=== PATIENT | female | born 1935 | race Caucasian/White ===

== ENCOUNTER 2019-06-12 18:33 | Inpatient (IN) ==
[2019-06-12 19:36] LABS: HEMATOCRIT 46.7 % (37.0-47.0); HEMOGLOBIN 15.8 g/dL (12.0-16.0); IMM GRAN# 0.05 X1000 (0.0-0.04); IMM GRAN% 0.6 % (0.0-0.5); LYMPH# 0.07 X1000 (1.2-3.4); LYMPH% 0.9 % (20.5-51.1); MCH 29.4 PG (27-31); MCHC 33.8 g/dL (33-37); MONO# 0.32 X1000 (0.11-0.59); MONO% 3.9 % (1.7-9.3); MPV 11.1 FL (7.4-10.4); NEUT% 94.6 % (42.2-75.2); PLT 108 X1000 (130-400); RBC 5.37 XMIL (4.2-5.4); RDW 14.9 % (11.5-14.5); WBC 8.14 X1000 (4.8-10.8)
--- NOTE | 2019-06-12 19:37 | PROVIDER DOCUMENTATION ---
This chart was entered by Marika Barbour Scribe, acting as scribe for Reina Reed MD. HPI-General Adult <Mayo SmithApollo - Last Filed: 06/12/19 20:34> - General Source: patient - History of Present Illness -Gen Adult Nature of Presenting Problems: 84 y/o female presents to ED with weakness onset 3 days ago. Pt reports she "just hasn't felt good." Pt states she thinks she has a UTI. Pt reports she saw her PCP yesterday for same, but has not gotten her results back yet. Last UTI was 2 weeks ago and she was treated with macrobid. Pt is alert and oriented. Location of Pain/Injury: reports: none Pain Radiation: reports: no radiation Quality of Pain: reports: none Severity: reports: mild Onset/Duration: reports: 3 days ago Timing: reports: still present Context/Activities at Onset: reports: none Modifying Factors: improves with: nothing Associated Symptoms: reports: weakness Similar Symptoms Previously?: Yes Recently seen or treated by another doctor?: Yes <Reina Reed - Last Filed: 06/12/19 21:27> - General Chief Complaint: UTI Symptoms Stated Complaint: ams/UTI Time Seen by Provider: 06/12/19 19:00 Allergies/Adverse Reactions: Patient Allergies Allergy/AdvReac Type Severity Reaction Status Date / Time iodine AdvReac HIVES Verified 06/12/19 18:59 Review of Systems - Adult - REVIEW OF SYSTEMS - ADULT Constitutional: denies: chills, fever Eyes: reports: no symptoms reported Ears, Nose, Mouth & Throat: reports: no symptoms reported Cardiovascular: denies: chest pain, palpitations Respiratory: denies: cough, shortness of breath Gastrointestinal: denies: abdominal pain, diarrhea, nausea, vomiting Genitourinary: reports: no symptoms reported Musculoskeletal: denies: back pain, joint pain Integumentary: reports: no symptoms reported Neurological: reports: other (weakness). denies: dizziness/vertigo, seizure Psychiatric: reports: no symptoms reported Endocrine: reports: no symptoms reported Hematologic/Lymphatic: reports: no symptoms reported Allergic/Immunologic: reports: no symptoms reported All Other Systems: Reviewed and Negative <Reina Reed - Last Filed: 06/12/19 21:27> Past History - Adult - PAST MEDICAL HISTORY-ADULT Review of Records: reports: Old Records Reviewed, Nursing Assessment Review, Medications Reviewed Major Childhood Illnesses: reports: denies history Cardiovascular: reports: arrhythmia - PRIOR SURGERIES/PROCEDURES Surgical/Procedure History: reports: breast (lumpectomy) - IMMUNIZATION STATUS Childhood Immunizations: See Nurse Assessment Flu Vaccine: See Nurse Assessment - FAMILY HISTORY Family History: reviewed, not pertinent - SOCIAL HISTORY Smoking: non-smoker Substance Use: none/never Alcohol Use Frequency: never Living Situation: family <BriannaReina Nara - Last Filed: 06/12/19 21:27> Physical Exam-General - PHYSICAL EXAM-ADULT Initial Vital Signs Reviewed: Yes (HTN on monitor) - CONSTITUTIONAL General Appearance: appears well, alert, no apparent distress - EYES Eyes: PERRL/EOMI, pink conjunctivae - HEAD, EARS, NOSE, MOUTH & THROAT HENMT: normocephalic/atraumatic, moist mucous membranes, normal ENT inspection - NECK Neck: non-tender, full range of motion - RESPIRATORY Respiratory: chest non-tender, lungs clear, normal breath sounds - CARDIOVASCULAR Cardiovascular: normal peripheral pulses, regular rate, rhythm - GASTROINTESTINAL (ABDOMEN) Abdominal Exam: normal bowel sounds, non tender, soft - MUSCULOSKELETAL Back Exam: normal inspection, no CVA tenderness, no vertebral tenderness Extremity: normal range of motion, non-tender - SKIN Integumentary: normal color, warm/dry - NEUROLOGIC Neurologic: grossly normal - PSYCHIATRIC Psych/Mental Status: normal mood/affect, normal thought content, normal thought process, oriented x 3 <Reina Reed - Last Filed: 06/12/19 21:27> Progress - PLAN OF CARE/RESULTS Progress/Plan/Lab Results: Vital Signs - 8 hr 06/12/19 18:57 Temperature 99.3 F Pulse Rate 103 H Respiratory Rate 20 Blood Pressure 164/96 O2 Sat by Pulse Oximetry 96 Laboratory Results - last 24 hr 06/12/19 06/12/19 06/12/19 19:12 19:12 19:43 WBC 8.14 RBC 5.37 Hgb 15.8 Hct 46.7 MCV 87.0 MCH 29.4 MCHC 33.8 RDW Std Deviation 14.9 H Plt Count 108 L MPV 11.1 H Immature Gran % (Auto) 0.6 H Neut % (Auto) 94.6 H Lymph % (Auto) 0.9 L Isabella % (Auto) 3.9 Eos % (Auto) 0.0 Baso % (Auto) 0.0 Immature Gran # (Auto) 0.05 H Neut # (Auto) 7.70 H Lymph # (Auto) 0.07 L Isabella # (Auto) 0.32 Eos # (Auto) 0.00 Baso # (Auto) 0.00 Sodium 134 L Potassium 4.3 Chloride 100 Carbon Dioxide 21 L Anion Gap 13 BUN 46 H Creatinine 1.6 H Estimated GFR/1.73 m2 31 BUN/Creatinine Ratio 29 Glucose 228 H Calculated Osmolality 287 Calcium 8.7 L Total Bilirubin 0.30 AST 39 H ALT 21 Alkaline Phosphatase 148 H Total Protein 7.1 Albumin 3.5 Globulin 4.0 Albumin/Globulin Ratio 1.0 Urine Source CATH Urine Color YELLOW Urine Clarity VERY CLOUDY A Urine pH 5.0 Ur Specific [place] 1.010 Urine Protein 2+(100 mg/dL) A Urine Ketones TRACE Urine Blood 3+ A Urine Nitrite NEGATIVE Urine Bilirubin NEGATIVE Urine Urobilinogen NORMAL Urine Microscopic RBC 10-20 A Urine WBC 2+ A Urine Microscopic WBC TNTC A Ur Epithelial Cells >10 A Urine Crystals NONE SEEN Urine Bacteria 2+ Urine Casts NONE SEEN Urine Yeast NONE SEEN Urine Glucose 1+(100 mg/dL) A Orders Category Date Time Status CHEST-PORTABLE [RAD] Stat Exams 06/12/19 19:09 Taken CBC WITH ELECTRONIC DIFF [HEME] Stat Lab 06/12/19 19:12 Completed COMPREHENSIVE METABOLIC PANEL [CHEM] Stat Lab 06/12/19 19:12 Completed UA NIMS W/REFLEX CULT PL [URINALYSIS] Stat Lab 06/12/19 19:43 Completed URINE CULTURE [RM] Routine Lab 06/12/19 20:10 Ordered Result Diagrams: 06/12/19 19:12 06/12/19 19:12 <Mayo Smith - Last Filed: 06/12/19 20:34> - PLAN OF CARE/RESULTS Progress/Plan/Lab Results: Vital Signs - 8 hr 06/12/19 18:57 Temperature 99.3 F Pulse Rate 103 H Respiratory Rate 20 Blood Pressure 164/96 O2 Sat by Pulse Oximetry 96 Orders Category Date Time Status CHEST-PORTABLE [RAD] Stat Exams 06/12/19 19:09 Ordered CBC WITH ELECTRONIC DIFF [HEME] Stat Lab 06/12/19 19:09 Uncollected COMPREHENSIVE METABOLIC PANEL [CHEM] Stat Lab 06/12/19 19:09 Uncollected UA NIMS W/REFLEX CULT PL [URINALYSIS] Stat Lab 06/12/19 19:09 Uncollected Result Diagrams: 06/12/19 19:12 06/12/19 19:12 - XRAY 1 XRAY Study: Chest Impression: See EMR Report ([facility] - [address] , [address], [place] [address] [facility] - [address] , [place] [address] Department of Imaging Patient: RAKESH LOGANDM Date: 06/12/19#: [id number] : 1935DM Status: REG ERAcct#: [id number] Age/Sex: 84/FRoom/Bed: Loc: P.ED Ordering Physician: Reina Reed MD Family Physician: None,PCP Reason for Procedure: WESpencer GUIDRY ___ Signed CHEST-PORTABLE - 06/12/2019 INDICATION: WEAKNESS COMPARISON: None FINDINGS: There is some hazy atelectasis in the lung bases bilaterally. No infiltrates or edema. No pneumothorax or pleural effusion. Heart size is normal. IMPRESSION: Hazy nonspecific bibasilar atelectasis. Electronically signed by Thomas Albrecht 06/12/2019 9:10 PM 06/12/192109 Interpreting Physician: Thomas Albrecht MD Dictated Date/Time: 06/12/192109 cc: Reina Reed MD; None,PCP) - CONSULTS/PCP/HOSPITALIST Notification #1 *Consult/PCP/Hospitalist*: Dr. Clark Time Discussed: 20:34 Reason/Comments: UTI, weakness, dehydration, renal insufficiency Consult Disposition: Admit - CHANGE OF SHIFT REPORT (ED Provider) 1 Report Given and Care Transferred to:: Dr. Smith Time of Transfer: 20:00 Items Pending: Labs, XRAY Results <Reina Reed - Last Filed: 06/12/19 21:27> Departure - Departure Certified Medical Emergency: Emergent - Critical Care Note This patient required my direct & personal management of CC.: No <Mayo Smith - Last Filed: 06/12/19 20:34> - Departure Date of Disposition Decision: 06/12/19 Time of Disposition Decision: 20:34 Certified Medical Emergency: Emergent - Critical Care Note This patient required my direct & personal management of CC.: No <Reina Reed - Last Filed: 06/12/19 21:27> - Departure DIAGNOSIS: Weakness, Dehydration, Renal insufficiency UTI (urinary tract infection) Qualifiers: Urinary tract infection type: site unspecified Hematuria presence: with hematuria Qualified Code(s): N39.0 - Urinary tract infection, site not specified Disposition: ADMITTED INPATIENT 09 Condition: Fair Referrals and Follow-Ups: None,PCP [Primary Care Provider] - Attestation - Physician/ NERI Attestation Patient care was provided by Advanced Practice Provider:: No The physician spent face to face time with patient:: Yes Advanced Practice Provider documentation review:: Supervising physician onsite and consulted in the evaluation and care of this patient. The physician did have a face to face encounter with the patient. <Mayo Smith - Last Filed: 06/12/19 20:34> - Physician/ NERI Attestation Patient care was provided by Advanced Practice Provider:: No The physician spent face to face time with patient:: Yes Advanced Practice Provider documentation review:: Supervising physician onsite and consulted in the evaluation and care of this patient. The physician did have a face to face encounter with the patient. <Reina Reed - Last Filed: 06/12/19 21:27> This chart was documented by the indicated scribe, (Marika Barbour Scribe) and accurately reflects the services I performed and decisions made by , Reina Reed MD, as attested by the provider's signature.
[2019-06-12 19:49] LABS: ALBUMIN 3.5 g/dL (3.5-5.0); CALCIUM 8.7 mg/dL (8.8-10.2); CREATININE 1.6 mg/dL (0.5-0.9); POTASSIUM 4.3 mmol/L (3.5-5.1); TOTAL BILIRUBIN 0.3 mg/dL (0.20-1.00); TOTAL PROTEIN 7.1 g/dL (6.3-8.3)
[2019-06-12 19:59] LABS: BILIRUBIN URINE NEGATIVE (NEGATIVE); BLOOD URINE 3+ (NEGATIVE); CLARITY VERY CLOUDY (CLEAR); COLOR YELLOW; KETONE URINE TRACE mg/dL (NEGATIVE); LEUKOCYTES URINE 2+ (NEGATIVE); NITRITE URINE NEGATIVE (NEGATIVE); PROTEIN URINE 2+(100 mg/dL) mg/dL (NEGATIVE); UROBILINOGEN URINE NORMAL
[2019-06-12 20:09] LABS: URINE WBC TNTC /HPF (<10)
[2019-06-12 20:10] LABS: URINE BACTERIA 2+ /HFP; URINE CAST NONE SEEN /LPF; URINE CRYSTAL NONE SEEN /HPF; URINE EPITHELIAL CELLS >10 /HPF (<10); URINE SOURCE CATH; URINE YEAST NONE SEEN /HPF
--- NOTE | 2019-06-12 21:13 | Diag Imaging Result Doc PS360 ---
CHEST-PORTABLE - 06/12/2019 INDICATION: WEAKNESS COMPARISON: None FINDINGS: There is some hazy atelectasis in the lung bases bilaterally. No infiltrates or edema. No pneumothorax or pleural effusion. Heart size is normal. IMPRESSION: Hazy nonspecific bibasilar atelectasis. Electronically signed by Thomas Albrecht 06/12/2019 9:10 PM
[2019-06-12] MEDS ORDERED: ZOFRAN IV PRN (22:25)
[2019-06-12] MEDS ORDERED: NS 1,000 ML IV ONE (22:25)
[2019-06-12] MEDS ORDERED: ROCEPHIN 1 GM in NS 50 ML IV SCH (22:25)
[2019-06-13] MEDS ORDERED: TYLENOL PO PRN (06:38)
[2019-06-13] MEDS ORDERED: ZOFRAN IV PRN (06:38)
[2019-06-13 07:52] LABS: HEMOGLOBIN A1C 5.5 % (4.8-6.0)
[2019-06-13 08:08] LABS: HEMATOCRIT 34.8 % (37.0-47.0); MCH 28.4 PG (27-31); MCHC 31.6 g/dL (33-37); MCV 89.7 FL (81-99); MPV 10.4 FL (7.4-10.4); RBC 3.88 XMIL (4.2-5.4); RDW 14.8 % (11.5-14.5); WBC 13.65 X1000 (4.8-10.8)
[2019-06-13 08:09] LABS: ALBUMIN 3.3 g/dL (3.5-5.0); CALCIUM 8.7 mg/dL (8.8-10.2); CREATININE 1.5 mg/dL (0.5-0.9); MAGNESIUM 2.2 mg/dL (1.5-2.7); POTASSIUM 4.1 mmol/L (3.5-5.1); TOTAL BILIRUBIN 0.2 mg/dL (0.20-1.00); TOTAL PROTEIN 6.4 g/dL (6.3-8.3)
--- NOTE | 2019-06-13 12:04 | HISTORY AND PHYSICAL ---
CHIEF COMPLAINT: "I just haven't felt good. I think I have a UTI." HISTORY OF PRESENT ILLNESS: This is an 84-year-old female who presents to the emergency room, stating that she has had generalized weakness and just not felt good over the past 3 days. She thinks she has a UTI. She was treated 2 weeks ago with Macrobid for UTI. She stated that symptoms got a little better during this time, but since stopping the medication over the last week, symptoms have recurred. She was evaluated on the by her primary care physician. She stated they took a urine culture and told her they would call her and give antibiotics if warranted per the culture. She began to feel worse, prompting her presentation to the emergency room. PAST MEDICAL HISTORY: 1. Recent urinary tract infection. 2. Palpitations. PAST SURGICAL HISTORY: Lumpectomy. SOCIAL HISTORY: She denies alcohol, tobacco, or illicit drug use. ALLERGIES: Iodine which causes hives. HOME MEDICATIONS: None. REVIEW OF SYSTEMS: Review of systems discussed with patient, with pertinent positives stated in the HPI. She denied any syncope or dizziness, any chest pain or palpitations, any night sweats, any fevers or chills, recent weight loss or weight gain, any nausea, vomiting, diarrhea, constipation, shortness of breath, PND, orthopnea, any hematuria. PHYSICAL EXAMINATION: GENERAL: This is an 84-year-old female, who is sitting up in the bed in no distress. VITAL SIGNS: Blood pressure 134/57, heart rate of 62, respirations 18, temperature 97.7 degrees orally, O2 saturation 100%. HEENT: Head is normocephalic, atraumatic. Mucous membranes are moist. NECK: Supple with trachea midline. CARDIOVASCULAR: Regular rate and rhythm. S1 and S2 appreciated. EXTREMITIES: She has no lower extremity edema. Calves are nontender bilateral with peripheral pulses palpable x4 extremities. PULMONARY: Breath sounds are clear with no increased work of breathing noted. Chest rises and falls symmetric with respiration. GASTROINTESTINAL: Abdomen is soft, nontender, nondistended with bowel sounds in all 4 quadrants. GENITOURINARY: She denies any CVA or suprapubic tenderness. NEUROLOGIC: She is alert and oriented x3. SKIN: Warm and dry. DIAGNOSTIC STUDIES: WBC 13.6, hemoglobin 11, hematocrit 34.8, platelets of 173,000. Sodium 140, potassium 4.1, BUN 43, creatinine 1.5, glucose 113. Urinalysis revealed too numerous to count white blood cells, greater than 10 epithelial cells, 10-20 microscopic red blood cells, nitrite negative. Chest x-ray revealed hazy nonspecific bibasilar atelectasis. ASSESSMENT AND PLAN: 1. Bibasilar atelectasis. 2. Urinary tract infection, currently growing gram-negative rods on culture. 3. Leukocytosis. 4. Renal insufficiency. We are unsure if this is chronic or not as we have no prior labs and the patient is unsure. 5. Deep vein thrombosis prophylaxis. 6. Gastrointestinal prophylaxis. PLAN: The patient has been admitted to the medical-surgical floor. She was placed on telemetry which we will continue. We will place her on a regular diet with Ensure supplements. We will continue IV hydration with Rocephin for antibiotic coverage, Tylenol as needed. As she had atelectasis on her chest x-ray, we will add incentive spirometer. Of note, in reviewing the patient's labs, she did have a platelet count of 108,000 on the so we will use SCDs. Although the platelets have come up to 173, we will hold Lovenox for now and use SCDs and have the patient up to the chair. For GI prophylaxis, we will use Prilosec. Further treatments pending hospital course. Dictated by CANDIE Richmond for Franklyn Clark MD cc: CANDIE Richmond MD
--- NOTE | 2019-06-13 20:14 | HISTORY AND PHYSICAL ---
ADDENDUM: Patient seen and examined by myself. Full note dictated and discussed with nurse practitioner. Patient presented to the hospital with low grade fevers. She really just has not felt well. She has had some urinary symptoms. She did have a UTI 2 weeks ago, was treated with Macrobid. It appears as though she still has a urinary infection. We are going to put her in the hospital, antibiotics, IV fluids, follow her blood pressures and her heart rates. Her blood sugars are elevated. We will place her on sliding scale. Further orders as needed. cc: Franklyn Clark MD
[2019-06-13] MEDS ORDERED: ROCEPHIN 1 GM in NS 50 ML IV SCH (21:00)
[2019-06-14] MEDS: PRILOSEC PO SCH (06:09)
[2019-06-14 06:44] LABS: CALCIUM 8.4 mg/dL (8.8-10.2); CREATININE 1.2 mg/dL (0.5-0.9); POTASSIUM 3.7 mmol/L (3.5-5.1)
[2019-06-14 07:32] LABS: HEMATOCRIT 35.6 % (37.0-47.0); HEMOGLOBIN 11.3 g/dL (12.0-16.0); MCV 89.2 FL (81-99); RBC 3.99 XMIL (4.2-5.4); WBC 9.49 X1000 (4.8-10.8)
[2019-06-14 07:33] LABS: BASO# 0.03 X1000 (0.0-0.2); BASO% 0.3 % (0.0-0.8); EOS# 0.06 X1000 (0.0-0.7); EOS% 0.6 % (0.0-10.0); IMM GRAN# 0.04 X1000 (0.0-0.04); IMM GRAN% 0.4 % (0.0-0.5); LYMPH# 0.66 X1000 (1.2-3.4); MCH 28.3 PG (27-31); MCHC 31.7 g/dL (33-37); MONO# 2.42 X1000 (0.11-0.59); MONO% 25.5 % (1.7-9.3); MPV 11.2 FL (7.4-10.4); NEUT# 6.28 X1000 (1.4-6.5); NEUT% 66.2 % (42.2-75.2); PLT 199 X1000 (130-400); RDW 14.6 % (11.5-14.5)
[2019-06-14 10:36] LABS: BANDS 1 % (0-1); LYMPHS 8 % (21-51); MONO 17 % (1-9); SEGS 74 % (42-75)
[2019-06-14] MEDS: LEVAQUIN PO SCH (10:59)
[2019-06-14] MEDS: LACTULOSE PO SCH ×2 (10:59→21:51)
--- NOTE | 2019-06-14 19:37 | PROGRESS NOTE ---
DATE: 06/14/2019 SUBJECTIVE: The patient notes that she is feeling better from an infectious standpoint, but she is still weak and fatigued, having difficulty getting out of bed. Her family notes that the weakness had been going on for several days prior to coming to the hospital as well. OBJECTIVE: Temperature 98.3 degrees, pulse 75, respiratory 18, BP 145/90.General: Patient is a pleasant elderly female who is in no respiratory distress. HEENT: Normocephalic. Neck: Supple. Cardiovascular: Regular rate. No murmurs. Chest: Clear, nonlabored. Abdomen: Soft, nondistended. Extremities: Moves all extremities. Skin: Warm and dry. No rashes. ASSESSMENT: 1. Generalized weakness. 2. Fatigue. 3. Escherichia coli urinary tract infection, pansensitive. We will switch her to Levaquin. 4. Leukocytosis, improved. 5. Renal insufficiency, resolved. 6. Advanced age. PLAN: We will continue patient in the hospital, consult Physical Therapy. Certainly may require rehab if she is unable to get stronger on her own. We will follow. Switch to Levaquin. Further orders as needed cc: Franklyn Clark MD MTDD
[2019-06-15] MEDS: PRILOSEC PO SCH (06:24)
[2019-06-15 06:36] LABS: BASO# 0.03 X1000 (0.0-0.2); BASO% 0.4 % (0.0-0.8); EOS# 0.06 X1000 (0.0-0.7); EOS% 0.8 % (0.0-10.0); HEMATOCRIT 35.8 % (37.0-47.0); HEMOGLOBIN 11.5 g/dL (12.0-16.0); IMM GRAN# 0.06 X1000 (0.0-0.04); IMM GRAN% 0.8 % (0.0-0.5); LYMPH# 0.79 X1000 (1.2-3.4); LYMPH% 10.1 % (20.5-51.1); MCH 28.7 PG (27-31); MCHC 32.1 g/dL (33-37); MCV 89.3 FL (81-99); MONO# 1.84 X1000 (0.11-0.59); MONO% 23.4 % (1.7-9.3); MPV 10.4 FL (7.4-10.4); NEUT# 5.07 X1000 (1.4-6.5); NEUT% 64.5 % (42.2-75.2); PLT 232 X1000 (130-400); RBC 4.01 XMIL (4.2-5.4); RDW 14.5 % (11.5-14.5); WBC 7.85 X1000 (4.8-10.8)
[2019-06-15 06:44] LABS: BANDS 5 % (0-1); EOS 5 % (1-10); LYMPHS 14 % (21-51); MONO 20 % (1-9); SEGS 56 % (42-75)
[2019-06-15] MEDS: LEVAQUIN PO SCH (10:11)
[2019-06-15] MEDS: LACTULOSE PO SCH (10:12)
--- NOTE | 2019-06-15 19:20 | PROGRESS NOTE ---
DATE: 06/15/2019 SUBJECTIVE: The patient notes that she feels fine as long as she is sitting still. She has to have lots of help to get up to the chair or get up to the restroom. PHYSICAL EXAMINATION: Vital signs: pulse 66, respiratory rate 20, BP 160/66. General: The patient is in no distress. Very pleasant elderly female. HEENT: Normocephalic. Neck: Supple. Cardiovascular: Regular rate. No murmurs. Chest: Clear and nonlabored. Abdomen: Soft and nondistended. Extremities: Moves all extremities although generalized weakness. ASSESSMENT: 1. Escherichia coli urinary tract infection, pansensitive. 2. Leukocytosis, resolved. 3. Generalized weakness. 4. Hypertension. PLAN: We will continue the patient in the hospital. Continue physical therapy. Expect that she will need rehab on discharge. cc: Franklyn Clark MD MTDD
[2019-06-16] MEDS: LACTULOSE PO SCH ×3 (01:10→21:41)
[2019-06-16] MEDS: PRILOSEC PO SCH ×2 (05:58→06:33)
[2019-06-16] MEDS: PRINIVIL PO SCH (10:21)
[2019-06-16] MEDS: LEVAQUIN PO SCH (10:21)
--- NOTE | 2019-06-16 14:16 | PROGRESS NOTE ---
DATE: 06/16/2019 SUBJECTIVE: Patient notes that she is feeling better. Denies any fevers or chills. Notes that she is breathing better. The daughter was able to help her get into a chair yesterday. She did stay there for close to an hour, and then required help to get back. The daughter is asking if physical therapy will treat her over the weekend since they did not see Physical Therapy on Monday. PHYSICAL EXAMINATION: Vital Signs: Temperature 97.5, pulse 79, respiratory rate 18, BP 163/85. General: Patient is awake, currently in no distress. She is very pleasant, elderly female. HEENT: Normocephalic. Neck: Supple. Cardiovascular: Regular rate. Chest: Clear and nonlabored. Abdomen: Soft, nondistended. Extremities: Generalized weakness but does move all extremities. Neurologic: No changes. ASSESSMENT: 1. Escherichia coli urinary tract infection. 2. Leukocytosis, resolved. 3. 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 4. Hypertension. PLAN: Continue patient in the hospital. Continue antibiotics. IV fluids as needed. We will ask Physical Therapy to continue treatment and will follow. Expect that she will need rehab. cc: Franklyn Clark MD
[2019-06-17] MEDS: PRILOSEC PO SCH (06:15)
[2019-06-17] MEDS: LACTULOSE PO SCH ×2 (10:36→21:24)
[2019-06-17] MEDS: LEVAQUIN PO SCH (10:36)
[2019-06-17] MEDS: PRINIVIL PO SCH (10:36)
--- NOTE | 2019-06-17 21:12 | PROGRESS NOTE ---
DATE: 06/17/2019 SUBJECTIVE: Patient notes that she is feeling better. She is starting to ambulate a little bit better, but still needs assistance. PHYSICAL EXAMINATION: Vital Signs: Temperature 97.5 degrees, pulse 79, respiratory rate 18, BP 163/85. General: Patient is in no current distress. Overall, she is feeling better. HEENT: Normocephalic. Neck: Supple. Cardiovascular: Regular rate. No murmurs. Chest: Clear. Abdomen: Soft. Extremities: Moves all extremities. ASSESSMENT: 1. Escherichia coli urinary tract infection. 2. Leukocytosis, resolved. White count is down from 13 to 7. 3. Hypertension. 4. 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 PLAN: 1. Will continue patient in the hospital. 2. Continue physical therapy. 3. Antibiotics. 4. Hopefully, over the next day or two, she can get strong enough to discharge home. Otherwise, we will need to consider rehab. cc: Franklyn Clark MD
[2019-06-18 05:23] VITALS: BP 157/69
[2019-06-18] MEDS: PRILOSEC PO SCH ×2 (05:52→06:14)
[2019-06-18] MEDS: LEVAQUIN PO SCH (08:37)
[2019-06-18] MEDS: PRINIVIL PO SCH (08:37)
[2019-06-18] MEDS: LACTULOSE PO SCH (08:37)
--- NOTE | 2019-06-19 02:29 | DISCHARGE SUMMARY ---
ADMISSION DATE: 06/12/2019 DISCHARGE DATE: 06/18/2019 ADMISSION DIAGNOSES: 1. Bibasilar atelectasis. 2. Urinary tract infection growing gram-negative rods. 3. Leukocytosis. 4. Renal insufficiency. DISCHARGE DIAGNOSES: 1. E coli urinary tract infection. 2. Leukocytosis which resolved. 3. Hypertension. 4. 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 CONSULTATIONS: None. SURGERIES/PROCEDURES: None. HOSPITAL COURSE: Ms. Elena Herrera is an 84-year-old female with a medical history of recurrent urinary tract infections who presented to the emergency department with generalized weakness and just not feeling well 3 days prior to admission. The patient actually stated she felt like she had a UTI and had actually been treated for a UTI 2 weeks prior to with Macrobid. During that time her symptoms did get better, but once she was off the medications the symptoms returned. She went to see her PCP on 06/11/2019 and was instructed that after they got her urine culture they would call her if she needed more antibiotics, but began to feel much worse prior to receiving any information from her primary and then came to the emergency department. The urine culture that was obtained eventually grew out E coli which was pansensitive, ESBL negative. She was on Levaquin while she was here and being sent home with Levaquin. White count, the highest it got was 13,000, it went back down to normal. 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 Given her generalized weakness she was ordered to be active with physical therapy. She did remain mildly hypertensive while she was here anywhere from 150s to 170 systolically while she was on lisinopril low dose. Prior to discharge she requested to go home and have home health follow her. DISCHARGE VITAL SIGNS: Temperature 97.5 degrees, heart rate 83, respiratory rate 16, blood pressure 157/69, O2 saturation 97% on room air. DISCHARGE LAB DATA: On 06/15/2019, white blood cells 7000, hemoglobin 11, hematocrit 35, platelet count 232,000. On 06/14/2019, sodium 141, potassium 3.7, BUN 34, creatinine is 1.2, glucose 110, calcium 8.4. Microbiology, urine culture had E coli pansensitive, ESBL negative. PERTINENT IMAGING: Chest x-ray on admission, hazy nonspecific bibasilar atelectasis. Had telemetry strips they were all sinus rhythm. DISCHARGE MEDICATIONS: Levaquin 500 mg p.o. daily for days, and lisinopril 5 mg p.o. daily. DISCHARGE DIET: Ensure daily with lunch. Heart healthy. DISCHARGE ACTIVITY: As tolerated. DISCHARGE INSTRUCTIONS: If her condition changes contact physician and/or return to the emergency department. Changes may include but are not limited to, shortness of breath, increased fatigue, excessive bleeding, unexplained weight loss or gain, unimaginable pain, signs or symptoms of infection. DISCHARGE PHYSICIAN FOLLOW-UP: Joan Christopher on 06/25/2019 at 1:30 p.m. DISCHARGE DISPOSITION: Home with home health. Dictated by CANDIE Florian for Fady Kilgore MD Addendum: Patient seen and examined by myself. Agree with CANDIE note. It reflects my assessment and plan. Patient is being discharged in stable condition. Will be seen by PCP as scheduled. cc: CANDIE Florian MD [facility]
== END 2019-06-18 12:08 | disposition home health service (06) | DRG 690 ==
LOC: EDUNIT# 18:33 → EDBD 18:33 → P.ED 18:33 → SUATTDRO 22:11 → P.MEDSURG 22:11
PROVIDERS: ATTEND Internal Medicine
CPT/HCPCS: 71010; 71045; 80048; 80053; 81001; 83036; 83735; 85025; 85027; 87077; 87088; 87186; 94799; 97163; 97530; 99285; A9270; J0696; J7030

== ENCOUNTER 2020-01-10 12:11 | Inpatient (IN) ==
[2020-01-10 12:50] LABS: URINE SOURCE CLEAN CATCH
[2020-01-10 12:51] LABS: BILIRUBIN URINE NEGATIVE (NEGATIVE); BLOOD URINE MODERATE (NEGATIVE); COLOR YELLOW; GLUCOSE URINE NEGATIVE (NEGATIVE); KETONE URINE NEGATIVE (NEGATIVE); LEUKOCYTES URINE LARGE (NEGATIVE); NITRITE URINE NEGATIVE (NEGATIVE); PROTEIN URINE 100 mg/dL (NEGATIVE); SP GRAVITY URINE 1.018; TURBIDITY URINE HAZY (CLEAR); UR EPITHELIAL CELLS <10 /HPF (<10); URINE BACTERIA 4+ /HPF; URINE RBC <10 /HPF (<10); URINE WBC TNTC /HPF (<10); UROBILINOGEN URINE NORMAL (NORMAL)
[2020-01-10 13:08] LABS: BASO# 0.01 X1000 (0.0-0.2); BASO% 0.1 % (0.0-0.8); HEMATOCRIT 38.7 % (37.0-47.0); IMM GRAN# 0.04 X1000 (0.0-0.04); IMM GRAN% 0.2 % (0.0-0.5); LYMPH# 0.44 X1000 (1.2-3.4); LYMPH% 2.5 % (20.5-51.1); MCH 28.8 PG (27-31); MCV 92.8 FL (81-99); MONO# 1.84 X1000 (0.11-0.59); MONO% 10.3 % (1.7-9.3); NEUT# 15.46 X1000 (1.4-6.5); NEUT% 86.9 % (42.2-75.2); PLT 281 X1000 (130-400); RBC 4.17 XMIL (4.2-5.4); RDW 14.2 % (11.5-14.5); WBC 17.79 X1000 (4.8-10.8)
[2020-01-10 13:23] LABS: ALBUMIN 4.2 g/dL (3.5-5.0); CALCIUM 9.5 mg/dL (8.8-10.2); CREATININE 1.2 mg/dL (0.5-0.9); POTASSIUM 4.5 mmol/L (3.5-5.1); TOTAL BILIRUBIN 0.3 mg/dL (0.20-1.00); TOTAL PROTEIN 8.2 g/dL (6.3-8.3)
[2020-01-10 14:34] LABS: BANDS 1 % (0-1); LYMPHS 6 % (21-51); MONO 5 % (1-9); SEGS 88 % (42-75)
[2020-01-10] MEDS ORDERED: ZOFRAN IV PRN (14:49)
[2020-01-10] MEDS ORDERED: TYLENOL PO PRN (14:49)
[2020-01-10] MEDS: LEVAQUIN 250 MG/D5W 250 MG/50 ML IVPB IV SCH (15:00)
--- NOTE | 2020-01-10 15:59 | PROVIDER DOCUMENTATION ---
This chart was entered by Lucille Gar Scribe, acting as scribe for Leo Malone MD. HPI-Female /OB/Breast - General Chief Complaint: UTI Symptoms Stated Complaint: WEAK Time Seen by Provider: 01/10/20 13:32 Source: reports: patient Allergies/Adverse Reactions: Patient Allergies Allergy/AdvReac Type Severity Reaction Status Date / Time iodine AdvReac HIVES Verified 01/10/20 13:38 Home Medications: Home Medication List Medication Instructions Recorded Confirmed Last Taken Type LISINOpril [Prinivil] 5 mg PO DAILY #90 tab 06/18/19 Unknown Rx Lactulose 30 ml PO PRN PRN 01/10/20 01/10/20 Unknown History - History of Present Illness-Female /OB Nature of Presenting Problem: Patient is an 84 y/o female presenting to the ED today c/o urinary frequency, confusion and weakness. Daughter reports patient suffers from frequent UTIs. Patient saw Dr. Loaiza yesterday but she has not received results. Patient took M acrobid 2 weeks ago for treatment of a UTI. Patient denies fever/chills, dizziness, or hematuria. Patient denies all other signs/symptoms. Quality of Pain: reports: none Onset/Duration: reports: 2 days ago Vaginal Symptoms: reports: no symptoms Vaginal Bleeding Amount: None Urinary Symptoms: reports: frequency Related Symptoms: reports: no symptoms Associated Symptoms: reports: weakness, other (confusion) Similar Symptoms Previously?: Yes Recently seen or treated by another doctor?: Yes (Dr. Loaiza yesterday) - LMP/ History Menstrual Status: post-menopausal Review of Systems - Adult - REVIEW OF SYSTEMS - ADULT Constitutional: reports: no symptoms reported. denies: chills, fever Eyes: reports: no symptoms reported Ears, Nose, Mouth & Throat: reports: no symptoms reported Cardiovascular: reports: no symptoms reported. denies: chest pain Respiratory: reports: no symptoms reported. denies: cough, shortness of breath Gastrointestinal: reports: no symptoms reported. denies: abdominal pain, diarrhea, nausea, vomiting Genitourinary: reports: frequency. denies: dysuria, hematuria Musculoskeletal: reports: no symptoms reported Integumentary: reports: no symptoms reported Neurological: reports: other (weakness) Psychiatric: reports: no symptoms reported Endocrine: reports: no symptoms reported Hematologic/Lymphatic: reports: no symptoms reported Allergic/Immunologic: reports: no symptoms reported All Other Systems: Reviewed and Negative Past History - Adult - PAST MEDICAL HISTORY-ADULT Review of Records: reports: Old Records Reviewed, Nursing Assessment Review, Medications Reviewed, Social history reviewed & non-contributory. Major Childhood Illnesses: reports: denies history Cardiovascular: reports: arrhythmia - PRIOR SURGERIES/PROCEDURES Surgical/Procedure History: reports: breast (lumpectomy) - IMMUNIZATION STATUS Childhood Immunizations: See Nurse Assessment Flu Vaccine: See Nurse Assessment - FAMILY HISTORY Family History: reviewed, not pertinent Physical Exam-General - PHYSICAL EXAM-ADULT Initial Vital Signs Reviewed: Yes - CONSTITUTIONAL General Appearance: appears well, alert, no apparent distress - EYES Eyes: PERRL/EOMI, pink conjunctivae - HEAD, EARS, NOSE, MOUTH & THROAT HENMT: normocephalic/atraumatic, moist mucous membranes - NECK Neck: full range of motion, normal inspection - RESPIRATORY Respiratory: lungs clear, normal breath sounds, no respiratory distress, no accessory muscle use - CARDIOVASCULAR Cardiovascular: regular rate, rhythm, no edema - GASTROINTESTINAL (ABDOMEN) Abdominal Exam: non tender, soft - LYMPHATIC Lymphatic: no adenopathy - MUSCULOSKELETAL Back Exam: no CVA tenderness, no vertebral tenderness, kyphosis Extremity: normal range of motion, normal gait, normal inspection - SKIN Integumentary: normal color, normal turgor, warm/dry - NEUROLOGIC Neurologic: grossly normal, no motor/sensory deficits - PSYCHIATRIC Psych/Mental Status: normal mood/affect, normal thought content, normal thought process Progress - PLAN OF CARE/RESULTS Progress/Plan/Lab Results: Vital Signs - 8 hr 01/10/20 12:19 Temperature 98.2 F Pulse Rate 80 Respiratory Rate 18 Blood Pressure 139/62 O2 Sat by Pulse Oximetry 94 L Laboratory Results - last 24 hr 01/10/20 01/10/20 01/10/20 12:34 12:43 12:43 WBC 17.79 H RBC 4.17 L Hgb 12.0 Hct 38.7 MCV 92.8 MCH 28.8 MCHC 31.0 L RDW Std Deviation 14.2 Plt Count 281 MPV 10.0 Immature Gran % (Auto) 0.2 Neut % (Auto) 86.9 H Lymph % (Auto) 2.5 L [place] % (Auto) 10.3 H Eos % (Auto) 0.0 Baso % (Auto) 0.1 Immature Gran # (Auto) 0.04 Neut # (Auto) 15.46 H Lymph # (Auto) 0.44 L [place] # (Auto) 1.84 H Eos # (Auto) 0.00 Baso # (Auto) 0.01 Segmented Neutrophils 88 H Band Neutrophils 1 Lymphocytes 6 L Monocytes 5 Sodium 141 Potassium 4.5 Chloride 105 Carbon Dioxide 24 L Anion Gap 11 BUN 23 H Creatinine 1.2 H Estimated GFR/1.73 m2 43 BUN/Creatinine Ratio 19 Glucose 103 Calculated Osmolality 285 Calcium 9.5 Total Bilirubin 0.30 AST 27 ALT 12 Alkaline Phosphatase 83 Total Protein 8.2 Albumin 4.2 Globulin 4.0 Albumin/Globulin Ratio 1.0 Urine Source CLEAN CATCH Urine Color YELLOW Urine Turbidity HAZY Urine pH 6.0 Ur Specific [place] 1.018 Urine Protein 100 A Ur Glucose (Stick) NEGATIVE Ur Ketones (Stick) NEGATIVE Urine Blood MODERATE A Urine Nitrite NEGATIVE Urine Bilirubin NEGATIVE Urobilinogen Dipstick NORMAL Urine Leukocytes LARGE A Urine WBC (Auto) TNTC A Urine RBC (Auto) <10 U Epithel Cells (Auto) <10 Urine Bacteria (Auto) 4+ Orders Category Date Time Status Admit - [facility] Routine AdmDCTranf 01/10/20 14:48 Active Activity - Up with Assistance ORDERED Care 01/10/20 14:48 Active Apply Mechanical Device [QM] ORDERED Care 01/10/20 14:48 Active DVT/PE Risk Assess/Protocol [QM] ORDERED Care 01/10/20 14:48 Active Intake and Output-Strict ORDERED Care 01/10/20 14:48 Active Vital Signs Order Q 8-HR ASSESS Care 01/10/20 14:48 Active Regular Diet Diet 01/10/20 14:48 Active BLOOD CULTURE [BLDCUL] Routine Lab 01/10/20 15:42 Ordered CBC WITH DIFF [HEME] Stat Lab 01/10/20 12:43 Completed CBC WITH NO DIFF [HEME] Routine Lab 01/11/20 06:00 Ordered CMP [COMPREHENSIVE METABOLIC PANEL] [CHEM] Stat Lab 01/10/20 12:43 Completed COMPREHENSIVE METABOLIC PANEL [CHEM] Routine Lab 01/11/20 06:00 Uncollected LACTATE, PLASMA [CHEM] Stat Lab 01/10/20 15:42 Ordered MAGNESIUM [CHEM] Routine Lab 01/11/20 06:00 Uncollected TSH Routine Lab 01/11/20 06:00 Uncollected URINALYSIS W/POSS RFLX CULT [URINALYSIS] Stat Lab 01/10/20 12:34 Completed URINE CULTURE [RM] Routine Lab 01/10/20 13:39 Ordered 0.9% Sodium Chloride Inj [Ns] 1,000 ml Med 01/10/20 15:00 Active IV 75 mls/hr Acetaminophen [Tylenol] Med 01/10/20 14:49 Active 650 mg PO Q6H PRN PRN Levofloxacin 250 mg/D5w [Levaquin 250 mg/D5w] Med 01/10/20 15:00 Active 250 mg in 50 ml IV Q24H Ondansetron [Zofran] Med 01/10/20 14:49 Active 4 mg IV Q4-6H PRN PRN Result Diagrams: 01/10/20 12:43 01/10/20 12:43 Departure - Departure Date of Disposition Decision: 01/10/20 Time of Disposition Decision: 15:59 DIAGNOSIS: UTI (urinary tract infection), Weakness Disposition: ADMITTED INPATIENT 09 Certified Medical Emergency: Emergent Condition: Stable Referrals and Follow-Ups: Joan Christopher MD [Primary Care Provider] - - Critical Care Note This patient required my direct & personal management of CC.: No Attestation - Physician/ NERI Attestation Patient care was provided by Advanced Practice Provider:: No The physician spent face to face time with patient:: Yes Advanced Practice Provider documentation review:: Supervising physician onsite and consulted in the evaluation and care of this patient. The physician did have a face to face encounter with the patient. This chart was documented by the indicated scribe, (Lucille Gar Scribe) and accurately reflects the services I performed and decisions made by me, Leo Malone MD, as attested by the provider's signature.
[2020-01-10] MEDS: NS 1,000 ML IV SCH (16:16)
--- NOTE | 2020-01-11 02:21 | HISTORY AND PHYSICAL ---
CHIEF COMPLAINT: Urinary tract infection. HISTORY OF PRESENT ILLNESS: Patient is a very pleasant 84-year-old female whose entire history is per her daughter who notes the patient does not feel well and does not feel like answering questions. Daughter notes that she recently saw Dr. Christopher and was placed on antibiotics, Macrobid 2 weeks ago for a UTI. Feels as though symptoms have gotten better. She saw Dr. Christopher again yesterday and had a repeat urinalysis although does not have results of that. Since then, she has had increased urination. Daughter notes that she has had some confusion, weakness. She has been in the hospital before with urinary tract infection, frequent falling and required rehab due to the severity of her weakness. ALLERGIES: Iodine. MEDICATIONS: Lisinopril 5, lactulose p.r.n. REVIEW OF SYSTEMS: As noted above. Positive weakness as well as increased urinary frequency and burning. Denies any hematuria, hematochezia, melena. Denies constipation. Does have dysuria. Denies chest pain, palpitation. Denies any fevers, chills. Denies headaches, blurred vision, change in vision. Denies any focalized numbness, tingling. Denies any focal weakness. Does have generalized weakness. SURGICAL HISTORY: She has had a lumpectomy. PAST MEDICAL HISTORY: Arrhythmia, hypertension, constipation. FAMILY HISTORY: Positive for hypertension. SOCIAL HISTORY: The patient lives at home. She is cared for by her daughter. Does not smoke or drink. PHYSICAL EXAMINATION: VITAL SIGNS: Reviewed. Temperature 98 degrees, pulse 80, respiratory 18, BP 139/62, saturation 94% on 2 L. GENERAL: Patient is awake, pleasant. She is in no current respiratory distress although she is somewhat ill-appearing. HEENT: Normocephalic. NECK: Supple. CARDIOVASCULAR: Regular rate. CHEST: Clear. ABDOMEN: Soft, nondistended. EXTREMITIES: Moves all extremities. NEUROLOGIC: No changes. ASSESSMENT: 1. Leukocytosis. 2. Acute hypoxic respiratory failure. 3. Urinary tract infection. 4. Acute metabolic encephalopathy. 5. Sepsis secondary to urinary tract infection. 6. Hypertension. PLAN: We are going to admit patient to the hospital, place her on fluids, antibiotics, continue oxygen. She has good tissue perfusion currently. We are going to continue to follow. Further orders as needed. cc: Franklyn Clark MD
[2020-01-11] MEDS: NS 1,000 ML IV SCH ×4 (04:03→23:55)
[2020-01-11 06:26] LABS: HEMATOCRIT 33.4 % (37.0-47.0); MCH 28.2 PG (27-31); MCHC 29.9 g/dL (33-37); MCV 94.1 FL (81-99); MPV 10.5 FL (7.4-10.4); RBC 3.55 XMIL (4.2-5.4); RDW 14.4 % (11.5-14.5); WBC 11.78 X1000 (4.8-10.8)
[2020-01-11 06:30] LABS: ALBUMIN 3.2 g/dL (3.5-5.0); CALCIUM 8.8 mg/dL (8.8-10.2); MAGNESIUM 1.9 mg/dL (1.5-2.7); TOTAL BILIRUBIN 0.3 mg/dL (0.20-1.00); TOTAL PROTEIN 6.7 g/dL (6.3-8.3)
[2020-01-11] MEDS: LEVAQUIN 250 MG/D5W 250 MG/50 ML IVPB IV SCH (15:59)
--- NOTE | 2020-01-12 01:27 | PROGRESS NOTE ---
DATE: 01/11/2020 SUBJECTIVE: Patient has no new complaints. States that she is starting to feel a little bit better. Denies any fevers or chills. PHYSICAL EXAMINATION: Vital Signs: Temperature 98 degrees, pulse 66, respiratory 18, BP 141/69. General: Patient is pleasant. No distress. HEENT: Normocephalic. Neck: Supple. Cardiovascular: Regular rate. Chest: Clear. Abdomen: Soft. Extremities: Moves all extremities. ASSESSMENT: 1. Systolic ejection murmur. 2. Leukocytosis, improved. White count is down from 17 to 11. 3. Anemia of chronic disease. 4. Acute metabolic encephalopathy, appears resolved. 5. Sepsis secondary to urinary tract infection. 6. Hypertension. PLAN: We are going to continue patient in the hospital, continue antibiotics, and we will follow. cc: Franklyn Clark MD
[2020-01-12] MEDS: PRINIVIL PO SCH (10:09)
[2020-01-12] MEDS ORDERED: LEVAQUIN PO SCH (16:00)
--- NOTE | 2020-01-12 21:08 | PROGRESS NOTE ---
DATE: 01/12/2020 SUBJECTIVE: Patient notes that she is tired, still improving, but states she is still very worried about going home due to her general weakness. PHYSICAL EXAM: Vital signs: Temperature 98, pulse 84, respiratory rate 18, BP 161/62. General: The patient is pleasant, elderly female who is in no current respiratory distress. HEENT: Normocephalic. Neck: Supple. Cardiovascular: Regular rate. Chest: Clear. Abdomen: Soft. Extremities: Moves all extremities. ASSESSMENT: 1. Escherichia coli urinary tract infection. 2. Sepsis secondary to Escherichia coli urinary tract infection, resolved. 3. Hypertension. 4. Leukocytosis. 5. Acute hypoxic respiratory failure. PLAN: We are going to continue her in the hospital. Continue physical therapy. Continue antibiotics. Hopefully, she can either transition home tomorrow or to rehab. cc: Franklyn Clark MD
[2020-01-13 05:59] VITALS: BP 132/83
[2020-01-13] MEDS: PRINIVIL PO SCH (08:25)
--- NOTE | 2020-01-13 21:00 | DISCHARGE SUMMARY ---
ADMISSION DATE: 01/10/2020 DISCHARGE DATE: 01/13/2020 PRIMARY CARE PHYSICIAN: Dr. Joan Christopher. ADMISSION DIAGNOSES: 1. Leukocytosis. 2. An acute hypoxic respiratory failure. 3. Urinary tract infection. 4. An acute metabolic encephalopathy. 5. Sepsis secondary to urinary tract infection. 6. Hypertension. DISCHARGE DIAGNOSES: 1. An Escherichia coli urinary tract infection. 2. Sepsis secondary to Escherichia coli urinary tract infection resolved. 3. Hypertension. 4. Leukocytosis improved. 5. Acute hypoxic respiratory failure resolved. SUMMARY OF FINDINGS: This is an 84-year-old female who presented after she had recently seen her primary care physician and placed on antibiotics 2 weeks ago for UTI, even though the symptoms had gotten better she saw them again yesterday or the day prior to arrival and repeated a urinalysis but did not have the results of that. Since she had seen her primary care physician the day before she had increased urination, some increased confusion and weakness, was admitted placed on IV antibiotics, IV hydration and her urine culture grew out an E coli UTI. Her white count on arrival was 17.79, on 01/11 white count had come down to 11.78, her creatinine was 1.2 on admission after hydration the next day was 1.0. No further labs have been drawn since then but she is much improved and felt that she can safely be discharged home with [facility]. DISCHARGE MEDICATIONS: Will include Levaquin 250 mg p.o. daily #6 with no refills, lactulose 30 mL p.o. p.r.n. FOLLOWUP: She will follow up with her primary care physician in the next 1 to 2 weeks and call the office for an appointment. TIME SPENT: 35 minutes. Dictated by CANDIE Witt for Franklyn Clark MD cc: MD Franklyn Lewis MD
--- NOTE | 2020-01-14 14:44 | DISCHARGE SUMMARY ---
ADMISSION DATE: 01/10/2020 DISCHARGE DATE: 01/13/2020 ADDENDUM: Patient seen and examined by myself. Full note dictated and discussed with nurse practitioner. Patient was admitted to the hospital with leukocytosis. Subsequently, she was diagnosed with an Escherichia coli urinary tract infection and placed on Levaquin. Sepsis resolved on discharge. She is awake, alert, and feeling much better. cc: Franklyn Clark MD
== END 2020-01-13 10:42 | disposition home health service (06) | DRG 871 ==
LOC: P.ED 12:11 → P.MEDSURG 17:31
PROVIDERS: ATTEND Family Medicine